=== PATIENT | female | born 1995 ===

== ENCOUNTER 2021-04-13 03:44 | Outpatient (CLI) | payer OTHER ==
[~2021-04-13] VITALS: Ht 175.3 cm; Wt 91.8 kg
== END 2021-04-13 05:45 | disposition home or self-care (01) ==
LOC: LDOP 03:44
PROVIDERS: ATTEND Obstetrics & Gynecology
DX: O26.899 Other specified pregnancy related conditions, unspecified trimester (principal); R10.9 Unspecified abdominal pain

== ENCOUNTER 2021-04-13 08:12 | Inpatient (IN) | payer OTHER ==
[~2021-04-13] VITALS: Ht 162.6 cm; Wt 92.7 kg
[2021-04-14 07:10] VITALS: BP 113/66
== END 2021-04-14 14:20 | disposition home or self-care (01) | DRG 807 ==
LOC: LDOP 08:12 → LDIP 08:34 → 2NW 11:49
PROVIDERS: ADMIT Obstetrics & Gynecology; ATTEND Obstetrics & Gynecology
PROC: 10907ZC Drainage of Amniotic Fluid, Therapeutic from Products of Conception, Via Natural or Artificial Opening (ICD-10-PCS; principal; 2021-04-14)
PROC: 10E0XZZ Delivery of Products of Conception, External Approach (ICD-10-PCS; 2021-04-14)
DX: O80 Encounter for full-term uncomplicated delivery (principal); Z37.0 Single live birth; Z3A.39 39 weeks gestation of pregnancy; Z20.822 Contact with and (suspected) exposure to COVID-19